=== PATIENT | male | born 1990 | race Caucasian/White ===

== ENCOUNTER 2019-10-27 07:30 | Emergency (ER) | payer MEDICAID ==
[~2019-10-27] VITALS: Ht 167.6 cm; Wt 91.6 kg
[2019-10-27 07:33] VITALS: BP 152/95
--- NOTE | 2019-10-27 07:37 | NUR ---
PT TO BED 4 WITH STEADY GAIT
--- NOTE | 2019-10-27 07:44 | NUR ---
AAO X4 29 YR OLD MALE BIB SELF C/O DIZZINESS AND NECK PAIN X 3 DAYS WITH INTERMITTENT SOB. DENIES NVD. HX: HTN, ANXIETY, ASTHMA
[2019-10-27 08:12] VITALS: BP 152/95
--- NOTE | 2019-10-27 08:12 | NUR ---
Patient discharged with v/s stable. Written and verbal after care instructions given and explained. Patient verbalized understanding. Ambulatory with steady gait. All questions addressed prior to discharge. Advised to follow up with PMD.
== END 2019-10-27 08:12 | disposition home or self-care (01) ==
LOC: MED 07:30
DX: R00.2 Palpitations (principal); R42 Dizziness and giddiness; J45.909 Unspecified asthma, uncomplicated
CPT/HCPCS: 93005; 99283

== ENCOUNTER 2019-11-24 20:25 | Emergency (ER) | payer MEDICAID ==
[~2019-11-24] VITALS: Ht 167.6 cm; Wt 95.3 kg
[2019-11-24 20:30] VITALS: BP 131/90
--- NOTE | 2019-11-24 20:33 | NUR ---
TO LOBBY A/W BED AMBULATORY
--- NOTE | 2019-11-24 20:57 | NUR ---
29 YEAR OLD MALE COMPLAINS OF NONRADIATING CHEST PAIN SINCE 10AM. PATIENT DENIES NAUSEA, VOMITTING, AND DIARRHEA. PATIENT DENIES SOB. PATIENT AOX4, BREATHING EVEN AND UNLABORED, SKIN WARM AND DRY. BED IN LOWEST POSITION, LOCKED, BED RAIL UPX1. ERMD MADE AWARE OF PT STATUS. PMH - HTN, ASTHMA, PANIC ATTACKS ALLERGIES - NKA
[2019-11-24] MEDS ORDERED: LORazepam 1 MG TAB PO ONE (21:20)
[2019-11-24] MEDS ORDERED: KETOROLAC 30 MG/ML VIAL IM ONE (21:20)
[2019-11-24] MEDS ORDERED: LORazepam 1 MG TAB ONE (21:22)
[2019-11-24] MEDS ORDERED: KETOROLAC 30 MG/ML VIAL ONE ×2 (21:23→21:27)
--- NOTE | 2019-11-24 21:31 | NUR ---
ATIVAN AND TORADOL ADMINISTERED ORDERED
--- NOTE | 2019-11-24 22:04 | NUR ---
PATIENT STATES CHEST PAIN NO LONGER PRESENT, MEDICATIONS NADR
--- NOTE | 2019-11-24 22:38 | NUR ---
Patient discharged with v/s stable. Written and verbal after care instructions about anxiety and panic attacks, and nonspecific chest pain given and explained. Patient verbalized understanding. Ambulatory with steady gait. All questions addressed prior to discharge. Advised to follow up with PMD.
[2019-11-24 22:40] VITALS: BP 125/89
== END 2019-11-24 22:38 | disposition home or self-care (01) ==
LOC: MED 20:25
DX: F41.0 Panic disorder [episodic paroxysmal anxiety] (principal); F12.90 Cannabis use, unspecified, uncomplicated; F32.9 Major depressive disorder, single episode, unspecified; J45.909 Unspecified asthma, uncomplicated; I10 Essential (primary) hypertension
CPT/HCPCS: 71045; 93005; 99283; J1885; Q0092

== ENCOUNTER 2024-07-08 07:48 | Emergency (ER) | payer MEDICAID, OTHER ==
[~2024-07-08] VITALS: Ht 165.1 cm; Wt 86.2 kg
[2024-07-08 08:01] VITALS: BP 160/96; PULSE 64; RESP 68; TEMP 98.2; O2SAT 97
[2024-07-08] MEDS: METOCLOPRAMIDE 10 MG/2 ML INJ VIAL IM ONE (09:30)
[2024-07-08] MEDS: KETOROLAC 30 MG/ML VIAL IM ONE (09:31)
[2024-07-08] MEDS: ACETAMINOPHEN EXTRA STRENGTH 500 MG TAB PO ONE (09:43)
[2024-07-08] MEDS ORDERED: MAG SULF 2000 MG/WATER PREMIX 50 ML IV SCH (10:30)
[2024-07-08] MEDS: KETOROLAC 30 MG/ML VIAL IVP ONE (10:51)
[2024-07-08] MEDS: DEXAMETHASONE 4 MG/ML VIAL IVP ONE (10:54)
[2024-07-08] MEDS: diphenhydrAMINE 50 MG/ML VIAL IVP ONE (10:57)
[2024-07-08] MEDS: MAG SULF 2000 MG/WATER PREMIX 50 ML IV ONE (11:02)
[2024-07-08] MEDS: NACL 0.9% 500 ML IV ONE (11:15)
[2024-07-08 13:50] VITALS: BP 127/87; PULSE 63; RESP 18; TEMP 98.2; O2SAT 97
== END 2024-07-08 13:50 | disposition home or self-care (01) ==
LOC: MED 07:48
DX: R51.9 Headache, unspecified (principal); I10 Essential (primary) hypertension; J45.909 Unspecified asthma, uncomplicated; F41.9 Anxiety disorder, unspecified; Z91.148 Patient's other noncompliance with medication regimen for other reason
CPT/HCPCS: 96365; 96366; 96372; 96375; 99285; J1100; J1200; J1885; J2765; J3475; J7030